=== PATIENT | male | born 1995 | race Two or more races ===

== ENCOUNTER 2016-06-27 08:23 | Emergency (ER) | payer MEDICAID ==
[2016-06-27] MEDS ORDERED: IOPAMIDOL 300 (61%) 100 ML VIAL IV ONE (08:24)
[2016-06-27] MEDS ORDERED: MORPHINE SULFATE 2 MG/ML SYRINGE ONE (10:16)
[2016-06-27] MEDS ORDERED: MORPHINE SULFATE 4 MG/ML SYRINGE ONE (10:16)
--- NOTE | 2016-06-27 10:50 | CT ---
NECK SOFT TISSUE W/ CON: 06/27/2016 10:22 AM CLINICAL INDICATION: Right-sided peritonsillar swelling. COMPARISON: None. (MR) Sequences Performed: None (CT) Scan Technique: Contiguous axial 3 mm images from the AP window through the orbital meatal line are obtained after the uneventful IV administration of contrast. Sagittal and coronal reformations were also obtained this time. Contrast: 100 ml of Isovue-300 contrast administered. FINDINGS: Orbits/Paranasal Sinuses/Skull Base: Normal Nasopharynx: Normal Suprahyoid Neck: Enlargement of the right tonsils is noted, measuring approximately 1.8 x 2.2 x 3.1 cm. Along the superficial aspect anteriorly is a 0.5 x 0.7 cm abscess. This is best seen on image 33. No other abscess is noted. Mild mass effect upon the tracheal air column is present, though this is otherwise widely patent. Infrahyoid Neck: Normal Thyroid: Normal Thoracic Inlet: Normal Lymph Nodes: Retromandibular node is identified on axial image 46 measuring 1.4 x 1 cm. Otherwise no evidence of adenopathy is present. Vascular Structures: Normal Other Findings: Osseous structures are intact. Visualized paranasal sinuses and mastoid air cells are well aerated. IMPRESSION: Right tonsillar enlargement with tiny abscess. A single enlarged node is identified. Mild mass effect upon the tracheal air column is present though otherwise widely patent. Findings were called to Dr. Banks at approximately 1044 hours on 06/27/2016.
[2016-06-27] MEDS ORDERED: IBUPROFEN 600 MG TABLET ONE (11:26)
[2016-06-27] MEDS ORDERED: AMOX 875 MG/CLAV 125 MG 1 EACH TABLET ONE (11:26)
[2016-06-27] MEDS ORDERED: ACETAMINOPHEN 325 MG TABLET ONE (11:26)
== END 2016-06-27 11:40 | disposition home or self-care (01) ==
LOC: ED 08:23
DX: J36 Peritonsillar abscess (principal)
CPT/HCPCS: 87880; 70491; 99284 ×2; 42700 ×2; A9270 ×3; J2270 ×2; Q9967